=== PATIENT | female | born 1965 | race Caucasian/White ===

== ENCOUNTER 2017-03-15 07:52 | Emergency (ER) | payer BC, OTHER ==
[2017-03-15 08:12] VITALS: BP 131/74
--- NOTE | 2017-03-15 09:17 | UC ---
Respiratory Complaint HPI - HPI Summary HPI Summary: 1 WEEK OF FEELING OF TIGHTNESS IN HER AIRWAYS AND WHEEZING. HAS SOME COUGH, ARNDT AND SOB. HAS H/O ASTHMA. ALBUTEROL INHALER NOT HELPING MUCH ANYMORE. NO FEVER, ST, EAR PAIN OR OTHER URI SX. WORSE WHEN SHE GOES OUTSIDE WITH ALL THE ALLERGENS. - History of Current Complaint Chief Complaint: UCAsthma Stated Complaint: ASTHMA COMPLAINT Time Seen by Provider: 03/15/17 09:06 Hx Obtained From: Patient Onset/Duration: Gradual Onset, Lasting Days, Still Present Timing: Constant Severity Initially: Moderate Severity Currently: Moderate Pain Intensity: 6 Pain Scale Used: 0-10 Numeric Character: Cough: Nonproductive Aggravating Factors: Allergens Alleviating Factors: Bronchodilator Associated Signs And Symptoms: Positive: Dyspnea, Wheezing. Negative: Fever, Chills, Pleuritic Chest Pain, Hemoptysis, Dizziness, Calf Pain, Calf Swelling, Edema, URI, Nasal Congestion, Hoarseness - Allergies/Home Medications Allergies/Adverse Reactions: Allergies Allergy/AdvReac Type Severity Reaction Status Date / Time Penicillins Allergy See Comment Verified 03/15/17 08:04 Sulfa Antibiotics Allergy See Comment Verified 03/15/17 08:04 Home Medications: Home Medications Albuterol Sulfate [Proair Respiclick] 2 puff PO PRN 03/15/17 [History] PMH/Surg Hx/FS Hx/Imm Hx Respiratory History: Asthma Cancer History: Breast Cancer - Surgical History Surgical History: Yes Surgery Procedure, Year, and Place: parathyroid gland removal. hyster - Family History Known Family History: Positive: Cardiac Disease, Hypertension Family History: ASTHMA AND ALLERGIES - Social History Alcohol Use: Occasionally Substance Use Type: None Smoking Status (MU): Never Smoked Tobacco Review of Systems Constitutional: Negative ENT: Negative Respiratory: Shortness Of Breath, Cough Cardiovascular: Negative Gastrointestinal: Negative Neurological: Headache All Other Systems Reviewed And Are Negative: Yes Physical Exam Triage Information Reviewed: Yes Appearance: Well-Appearing, No Pain Distress, Well-Nourished Vital Signs: Initial Vital Signs Temp 97.4 F 03/15/17 07:56 Pulse 77 03/15/17 07:56 Resp 18 03/15/17 07:56 BP 131/74 03/15/17 07:56 Pulse Ox 100 03/15/17 07:56 Vital Signs Reviewed: Yes Eyes: Positive: Conjunctiva Clear ENT: Positive: Hearing grossly normal Neck: Positive: Supple, Nontender, No Lymphadenopathy Respiratory Exam: Normal Respiratory: Positive: Lungs clear, Normal breath sounds, No respiratory distress, No accessory muscle use. Negative: Decreased breath sounds, Wheezing Cardiovascular Exam: Normal Abdomen Description: Positive: Soft Musculoskeletal: Positive: No Edema Neurological: Positive: Alert Psychological: Positive: Age Appropriate Behavior Skin: Negative: rashes UC Diagnostic Evaluation - Laboratory O2 Sat by Pulse Oximetry: 100 Respiratory Course/Dx - Differential Dx/Diagnosis Provider Diagnoses: ASTHMA EXACERBATION Discharge - Discharge Plan Condition: Stable Disposition: HOME Prescriptions: predniSONE TAB* [Deltasone TAB*] 50 mg PO DAILY #5 tab Patient Education Materials: Asthma (ED) Referrals: Zuleika Patterson MD [Primary Care Provider] - 1 Week Additional Instructions: PREDNISONE TO HELP OPEN UP YOUR AIRWAYS. CONTINUE YOUR ALBUTEROL PRESCRIBED. FOLLOW-UP WITH YOUR PCP IN A WEEK OR SO TO DISCUSS DAILY MEDICATION FOR ASTHMA AND ALLERGIES. FOLLOW-UP SOONER IF YOU ARE NOT RESPONDING TO TREATMENT. YOU MAY BENEFIT FROM SINGULAIR YOU SUGGESTED.
== END 2017-03-15 09:21 | disposition home or self-care (01) ==
LOC: UCEAST 07:52
DX: J45.901 Unspecified asthma with (acute) exacerbation (principal)
CPT/HCPCS: 99211; G0463

== ENCOUNTER 2017-11-25 09:45 | Emergency (ER) | payer BC, OTHER ==
[2017-11-25 10:55] VITALS: BP 133/82
[2017-11-25] MEDS ORDERED: Ibuprofen TAB* 600 MG PO ONE (11:16)
[2017-11-25] MEDS ORDERED: Ibuprofen TAB* 600 MG ONE (11:25)
--- NOTE | 2017-11-25 12:10 | UC ---
FLU HPI - HPI Summary HPI Summary: 52 Y/O female presents with fever, chills, anorexia, cough and general malaise x 1 day. Significant history includes asthma. denies dyspnea at this time. Has been exposed to flu at work. Discussed negative flu screening but is requesting tamiflu to be sent to pharmacy due to severity of symptoms agree with request. All medical history and medication have been reviewed at this visit. - History of Current Complaint Chief Complaint: UCGeneralIllness Stated Complaint: FLU SYMPTOMS Time Seen by Provider: 11/25/17 10:07 Hx Obtained From: Patient ?: No Onset/Duration: Sudden Onset Severity Currently: Moderate Severity Initially: Moderate Pain Intensity: 5 Associated Signs & Symptoms: Positive: Fever, Myalgia, Cough, Sore Throat, Nasal Congestion, Headache Related Hx: Possible Flu/Infectious Exposure - Allergy/Home Medications Allergies/Adverse Reactions: Allergies Allergy/AdvReac Type Severity Reaction Status Date / Time Penicillins Allergy Throat Verified 11/25/17 11:15 Swelling Sulfa (Sulfonamide Allergy See Comment Verified 11/25/17 11:15 Antibiotics) Home Medications: Home Medications Ibuprofen TAB* [Motrin TAB* 600 MG] 1 tab PO TID PRN 11/25/17 [History Confirmed 11/25/17] PMH/Surg Hx/FS Hx/Imm Hx Previously Healthy: Yes Respiratory History: Asthma - Surgical History Surgical History: Yes Surgery Procedure, Year, and Place: parathyroid gland removal. hyster. Lumpectomy - Family History Known Family History: Positive: Cardiac Disease, Hypertension Family History: ASTHMA AND ALLERGIES - Social History Alcohol Use: Occasionally Substance Use Type: None Smoking Status (MU): Never Smoked Tobacco - Immunization History Most Recent Tetanus Shot: UTD Review of Systems Constitutional: Fever, Chills, Fatigue Skin: Negative Eyes: Negative ENT: Ear Ache, Sinus Congestion Respiratory: Cough Cardiovascular: Negative Gastrointestinal: Negative Genitourinary: Negative Motor: Negative Neurovascular: Negative Musculoskeletal: Myalgia Neurological: Negative Psychological: Negative Is Patient Immunocompromised?: No All Other Systems Reviewed And Are Negative: Yes Physical Exam Triage Information Reviewed: Yes Appearance: Ill-Appearing - Flu like symptoms Vital Signs: Initial Vital Signs Temp 102.1 F 11/25/17 10:49 Pulse 86 11/25/17 10:49 Resp 20 11/25/17 10:49 BP 133/82 11/25/17 10:49 Pulse Ox 100 02/10/18 10:49 Vital Signs Reviewed: Yes Eye Exam: Normal ENT Exam: Other ENT: Positive: Nasal congestion, Nasal drainage Neck exam: Normal Neck: Positive: No Lymphadenopathy Respiratory Exam: Normal Respiratory: Positive: Lungs clear Cardiovascular Exam: Normal Abdominal Exam: Normal Bowel Sounds: Positive: Present Musculoskeletal Exam: Normal Neurological Exam: Normal Psychological Exam: Normal Skin Exam: Normal Flu Course/Dx - Differential Dx/Diagnosis Differential Diagnosis/HQI/PQRI: Influenza, RSV, Upper Respiratory Infection Provider Diagnoses: Influenza Discharge - Discharge Plan Condition: Stable Disposition: HOME Patient Education Materials: Influenza (ED) Referrals: Zuleika Patterson MD [Primary Care Provider] - Additional Instructions: Your influenza screen was negative. Take Tamiflu if symptoms are worse tomorrow. You may return to urgent care for increased symptoms, dyspnea or if you have difficulty taking in fluids. Increase fluids and get plenty of rest.
== END 2017-11-25 12:30 | disposition home or self-care (01) ==
LOC: UCEAST 09:45
DX: J11.1 Influenza due to unidentified influenza virus with other respiratory manifestations (principal); J45.909 Unspecified asthma, uncomplicated; Z88.0 Allergy status to penicillin; Z88.2 Allergy status to sulfonamides
CPT/HCPCS: 87502; 99212; A9270-GY; G0463

== ENCOUNTER 2018-06-19 17:12 | Emergency (ER) | payer BC, OTHER ==
[2018-06-19 17:54] VITALS: BP 129/97
--- NOTE | 2018-06-19 18:09 | UC ---
Laceration HPI - HPI Summary HPI Summary: This is Bobo hdez, documenting for attending Cara Foster MD. Pt is a 53 y/o M presents to with a laceration on her L ring finger onset ~ 1700, this date. Pain is described as sharp and rated a 6/10 Pt with RHD. Pt was using a papercutter and bumped hand into blade. Tday UTD. no immunocompromised. laceration - L hand, ring finger. Denies: fever, chills.. Her wound was wrapped once here at but she is bleeding through. No analgesia taken Patients medication reviewed this visit. - History Of Current Complaint Chief Complaint: UCLaceration Stated Complaint: HAND LACERATION Time Seen by Provider: 06/19/18 18:02 Hx Obtained From: Patient Hx Last Menstrual Period: menopausal Laceration Location: Hand - L hand, ring finger Mechanism Of Injury: Sharp Trauma Onset/Duration: Sudden Onset, Still Present Severity: Moderate Pain Intensity: 5 Pain Scale Used: 0-10 Numeric - Allergies/Home Medications Allergies/Adverse Reactions: Allergies Allergy/AdvReac Type Severity Reaction Status Date / Time Penicillins Allergy Throat Verified 11/25/17 11:15 Swelling Sulfa (Sulfonamide Allergy See Comment Verified 11/25/17 11:15 Antibiotics) Home Medications: Home Medications Ibuprofen [Advil] 200 mg PO 06/19/18 [History] PMH/Surg Hx/FS Hx/Imm Hx Previously Healthy: Yes Endocrine History: Other Other Endocrine History: NEG: DM Cardiovascular History: Other Other Cardiovascular History: NEG: HTN, CAD - Surgical History Surgical History: Yes Surgery Procedure, Year, and Place: parathyroid gland removal. hyster. Lumpectomy - Family History Known Family History: Positive: Cardiac Disease, Hypertension Family History: ASTHMA AND ALLERGIES - Social History Occupation: Employed Full-time Lives: Dormitory/Roommates Alcohol Use: Occasionally Substance Use Type: None Smoking Status (MU): Never Smoked Tobacco - Immunization History Most Recent Tetanus Shot: UTD Review of Systems Constitutional: Other - NEG: fever, chills Skin: Other - POS: Laceration - L hand, ring finger. All Other Systems Reviewed And Are Negative: Yes Physical Exam - Summary Physical Exam Summary: Vital Signs Reviewed: Yes A+Ox3, no distress Eyes: Conjunctiva Clear ENT: Hearing grossly normal neck: supple Respiratory: Positive: No respiratory distress, No accessory muscle use Cardiovascular: skin color reflect adequate perfusion Musculoskeletal Exam: JESUS x 4 without difficulty: left ring finger: full flex/ ext MCP, PIP, DIP without difficulty Neurological: Positive: Alert, ambulatory without difficulty + gross sensation throughout tip Psychological: Positive: Normal Response To Family Skin: Positive: no rash, no ecchymosis left ring finger: pt with avulsion of 2/3 nail with small skin avulsion of nail bed. Nail matrix intact and unaffected. no laceration for suturing bleeding controlled Triage Information Reviewed: Yes Vital Signs: Initial Vital Signs Temp 98.0 F 06/19/18 17:49 Pulse 57 06/19/18 17:49 Resp 18 06/19/18 17:49 BP 129/97 06/19/18 17:49 Pulse Ox 100 06/19/18 17:49 Laceration Course/Dx - Course/Dx Course Of Treatment: Pt with partial nail and nailbed avulsion left ring finger. wound soaked and cleansed - non suturable. covered with antibiotic ointment and pressured bandage wth tube gauze by me after verbal permission. elevate. motrin/apap. change dressing 48 hours with non stick. strict return precautions. elevate. pt comfortable and in agreement with plan. splint placed by RN - Differential Dx - Laceration/Wound Provider Diagnoses: avulsion injury nail and nailbed left ring finger Discharge - Sign-Out/Discharge Documenting (check all that apply): Patient Departure - Pt will be D/C home All imaging exams completed and their final reports reviewed: No Studies - Discharge Plan Condition: Stable Disposition: HOME Patient Education Materials: Nail Avulsion (ED) Referrals: Zuleika Patterson MD [Primary Care Provider] - 2 Days Additional Instructions: - Keep bandage on your finger for 48 hours. After this - okay to get wet - pat dry - do not rub - cover wound with thick layer of vasoline gauze and non stick bandage - elevate your arm tonight and tomorrow to help with swelling and throbbing pain - Okay to alternate ibuprofen (Advil, Motrin) and tylenol every 3 hours for pain. Take with food. Do NOT Take for more than 4-5 days - monitor your wound for signs of infection - reddness, red streaking, odor, or any other concerns - contact your doctor or return here - Billing Disposition and Condition Condition: STABLE Disposition: Home - Attestation Statements Document Initiated by Malikaibe: Yes Documenting Scribe: Bobo Basurto Provider For Whom Mehdi is Documenting (Include Credential): Cara Foster MD Scribe Attestation: Bobo Gomez, scribed for Cara Foster MD on 06/25/18 at 1659. Scribe Documentation Reviewed: Yes Provider Attestation: The documentation as recorded by the Bobo hdez accurately reflects the service I personally performed and the decisions made by me, Cara Foster MD
== END 2018-06-19 19:03 | disposition home or self-care (01) ==
LOC: UCEAST 17:12
DX: S61.315A Laceration without foreign body of left ring finger with damage to nail, initial encounter (principal); W27.5XXA Contact with paper-cutter, initial encounter; Y93.9 Activity, unspecified; Y92.9 Unspecified place or not applicable; Z88.0 Allergy status to penicillin; Z88.2 Allergy status to sulfonamides
CPT/HCPCS: 11000; 99212; G0463